=== PATIENT | female | born 1955 | race Caucasian/White ===

== ENCOUNTER 2018-12-11 13:24 | Emergency (ER) | payer BC ==
[~2018-12-11] VITALS: Ht 157.5 cm; Wt 67.0 kg
[2018-12-11 13:31] VITALS: Ht 157.5 cm; Wt 67.0 kg
[2018-12-11] MEDS ORDERED: ONDANSETRON (ODT) 4 MG TAB ODT STA (14:48)
[2018-12-11] MEDS ORDERED: HYDROCODONE/APAP (10/325) TAB PO ONE (15:00)
[2018-12-11] MEDS ORDERED: MECLIZINE 12.5 MG TAB PO ONE (15:00)
[2018-12-11] MEDS ORDERED: ONDA4TAB14 PO (16:02)
[2018-12-11] MEDS ORDERED: IBUP-1542 PO (16:02)
[2018-12-11 16:14] VITALS: BP 148/57; PULSE 79; RESP 18
--- NOTE | 2018-12-11 18:09 | ERD ---
ER Documentation Chief Complaint Chief Complaint headache, dizziness - history of vertigo HPI Patient is a 63-year-old female with vertigo presents with headache and "vertigo". The light is bothering her. She has a left-sided facial droop which she has had since she was 8 years old. She had a headache which started on Saturday. She had associated nausea. She tried Tylenol for pain. She feels like her left side of the face is numb. She does have a primary doctor. ROS All systems reviewed and are negative except as per history of present illness. Medications Home Meds Active Scripts Ondansetron (Ondansetron Odt) 4 Mg Tab.rapdis, 4 MG PO Q6H PRN for NAUSEA AND/OR VOMITING, #10 TAB Prov:KALEIGH MORAN MD 12/11/18 Ibuprofen* (Motrin*) 600 Mg Tab, 600 MG PO Q6H PRN for PAIN AND OR ELEVATED TEMP, #30 TAB Prov:KALEIGH MORAN MD 12/11/18 Allergies Allergies: Coded Allergies: No Known Allergy (Unverified , 12/11/18) PMhx/Soc Hx Miscellaneous Medical Probl: Yes (VERTIGO) Hx Alcohol Use: No Hx Substance Use: No Hx Tobacco Use: No Smoking Status: Never smoker FmHx Family History: No diabetes Physical Exam Vitals Vital Signs Date Temp Pulse Resp B/P (MAP) Pulse Ox O2 O2 Flow FiO2 Time Delivery Rate 12/11/18 98.0 79 18 148/57 96 Room Air 16:14 (87) 12/11/18 97.6 64 20 157/64 95 13:31 (95) Physical Exam Const: No acute distress Head: Atraumatic Eyes: Normal Conjunctiva ENT: Normal External Ears, Nose and Mouth. Neck: Full range of motion. No meningismus. Resp: Clear to auscultation bilaterally Cardio: Regular rate and rhythm, no murmurs Abd: Soft, non tender, non distended. Normal bowel sounds Skin: No petechiae or rashes Back: No midline or flank tenderness Ext: No cyanosis, or edema Neur: Awake and alert, left-sided facial droop which is constant since the patient was a child, no pronator drift, equal first cook strength bilateral upper extremities, strength is 5 out of 5 in all 4 extremities, no slurred speech Psych: Normal Mood and Affect Results 24 hrs Current Medications Medications Dose Sig/Parish Start Time Status Last (Trade) Ordered Route PRN Stop Time Admin Dose Reason Admin 1 tab ONCE ONCE 12/11/18 DC 12/11/18 Acetaminophen PO 15:00 15:00 / 12/11/18 15:01 Hydrocodone Bitart ([place] (10/325)) Ondansetron 4 mg ONCE STAT 12/11/18 DC 12/11/18 HCl (Zofran ODT 14:48 15:00 Odt) 12/11/18 14:50 Meclizine 25 mg ONCE ONCE 12/11/18 DC 12/11/18 HCl PO 15:00 15:00 (Antivert) 12/11/18 15:01 Procedures/MDM CT brain shows no acute process per radiology. Patient is a 63-year-old female who presents with acute headache with vertigo. CT scan shows no sign of intracranial mass or hemorrhage. I doubt stroke at this time. Her facial droop has been there since she was 8 years old. The patient was given [place] for pain, Zofran for nausea, and meclizine for dizziness. She will be discharged and can follow-up with her primary doctor within 24 to 48 hours. She can return sooner for any worsening symptoms. I doubt stroke, brain mass, or brain hemorrhage. Departure Diagnosis: Primary Impression: Headache Headache type: unspecified Headache chronicity pattern: acute headache Intractability: not intractable Qualified Codes: R51 - Headache Condition: Fair Patient Instructions: Self-Care for Headaches Referrals: Your doctor Additional Instructions: Llame al doctor MAANA y karen nna VENKATESH PARA DENTRO DE 1-2 [place].Dgale a la secretaria que nosotros le instruimos hacer esta venkatesh.Avise o llame si wilson condicin se empeora antes de la venkatesh. Regresa aqui si peor o no mejor. KALEIGH MORAN MD Dec 11, 2018 18:09
== END 2018-12-11 16:15 | disposition home or self-care (01) ==
LOC: FTE 13:24
DX: R51 Headache (principal); R11.0 Nausea
CPT/HCPCS: 70450; 99284; Z7610